=== PATIENT | female | born 1950 | race Caucasian/White ===

== ENCOUNTER 2024-04-26 01:51 | Emergency (ER) | payer MEDICARE, OTHER ==
[~2024-04-26] VITALS: Ht 154.9 cm; Wt 55.3 kg
[~2024-04-26 01:51] MED LIST: SIMV-46 PO; VALS1TAB4 PO
[2024-04-26] MEDS: CYCLOBENZAPRINE HCL 10 MG TABLET PO ONE (02:21)
[2024-04-26] MEDS ORDERED: CYCL5TAB PO (02:31)
[2024-04-26 02:40] VITALS: BP 128/75; TEMP 98; O2SAT 99
== END 2024-04-26 02:41 | disposition home or self-care (01) ==
LOC: ER 01:56
DX: S29.012A Strain of muscle and tendon of back wall of thorax, initial encounter (principal); E78.5 Hyperlipidemia, unspecified; F17.200 Nicotine dependence, unspecified, uncomplicated; Z79.899 Other long term (current) drug therapy; X58.XXXA Exposure to other specified factors, initial encounter; Y93.89 Activity, other specified; Y92.89 Other specified places as the place of occurrence of the external cause; Y99.8 Other external cause status
CPT/HCPCS: A4606; A4663